=== PATIENT | female | born 1950 | race Caucasian/White ===

== ENCOUNTER 2016-12-25 12:48 | Day surgery (SDC) | payer MEDICARE ==
[~2016-12-25] VITALS: Ht 162.6 cm; Wt 61.3 kg
[~2016-12-25 12:48] MED LIST: ALLE4TAB7; CEFT1INJ IM; CRAN1CAP6; FISH1200; INFL1INJ56 IM; LACTCAP7 PO; MELO15TA2 PO; METO25CR PO; PRAV10 PO; PRAV10TA PO; RANI150T PO; TAB-TAB PO; TIZA4 PO; VALT500T PO
[2016-12-25] MEDS ORDERED: RANI150T PO (13:19)
[2016-12-25] MEDS ORDERED: LACTCAP8 PO (13:19)
[2016-12-25] MEDS ORDERED: FISHCAP4 PO (13:19)
[2016-12-25] MEDS ORDERED: TIZA4CAP3 PO (13:19)
[2016-12-25] MEDS ORDERED: MELO-1 PO (13:19)
[2016-12-25] MEDS ORDERED: ATEN25TA PO (13:19)
[2016-12-25] MEDS ORDERED: MULT1TAB84 PO (13:19)
[2016-12-25 13:27] VITALS: BP 155/85; PULSE 85; RESP 16; TEMP 98.3; O2SAT 99
[2016-12-25] MEDS ORDERED: LACTATED RINGER'S 1000 ML IV SCH (13:30)
[2016-12-25] MEDS ORDERED: SODIUM CHLORID 0.9% 500 ML INJ 500 ML IV SCH (13:30)
[2016-12-25] MEDS ORDERED: METOPROLOL TARTRATE 25 MG TAB PO PRN (13:30)
[2016-12-25] MEDS: SODIUM CHLORID 0.9% 500 ML IV SCH (13:30)
[2016-12-25] MEDS ORDERED: INSULIN HUMAN REGULAR 1,000 UNITS/10 ML VIAL SQ PRN (13:30)
[2016-12-25 13:38] LABS: AUTOMATED NEUTROPHIL # 3.8 TH/MM3 (1.8-7.7); BASOPHIL % 0.6 % (0.0-2.0); EOSINOPHIL # 0.1 TH/MM3 (0-0.4); EOSINOPHIL % 0.8 % (0.0-4.0); HEMATOCRIT 39.7 % (35.0-46.0); HEMO FLAGS DIFF FINAL; LYMPH % 36.8 % (9.0-44.0); LYMPHOCYTE # 2.6 TH/MM3 (1.0-4.8); MEAN CELL VOLUME 93.8 FL (80.0-100.0); MEAN CORPUSCULAR HEMOGLOBIN 32.3 PG (27.0-34.0); MEAN CORPUSCULAR HGB CONC 34.4 % (32.0-36.0); MONO % 7.6 % (0.0-8.0); NEUT % 54.2 % (16.0-70.0); PLATELET COUNT 238 TH/MM3 (150-450); RED BLOOD COUNT 4.23 MIL/MM3 (4.00-5.30); RED CELL DISTRIBUTION WIDTH 12.9 % (11.6-17.2)
[2016-12-25 13:51] LABS: APTT (PATIENT) 30.2 SEC (24.3-30.1); INTERNATIONAL NORMALIZED RATIO 0.9 RATIO; PROTHROMBIN TIME - PATIENT 10.4 SEC (9.8-11.6)
[2016-12-25 14:05] LABS: BICARBONATE 30.7 MEQ/L (21.0-32.0)
[2016-12-25] MEDS ORDERED: POTASSIUM CHLOR 20 MEQ PREMIX 100 ML ONE (15:07)
[2016-12-25] MEDS ORDERED: PROPOFOL 200 MG/20 ML AMP OTHER ONE (15:47)
[2016-12-25] MEDS: POTASSIUM CHLOR 20 MEQ PREMIX 100 ML IV SCH ×2 (16:00→18:00)
[2016-12-25] MEDS ORDERED: MIDAZOLAM HCL 5 MG/5 ML VIAL ONE (16:04)
[2016-12-25] MEDS ORDERED: SODIUM CHLOR 0.9% 250 ML INJ 250 ML ONE ×2 (17:09→17:25)
[2016-12-25] MEDS ORDERED: VANCOMYCIN HCL 1000 MG VIAL ONE (17:09)
[2016-12-25] MEDS ORDERED: ISOPROTERENOL HCL 1 MG/5 ML AMP ONE (17:23)
[2016-12-25] MEDS ORDERED: MIDAZOLAM HCL 2 MG/2 ML VIAL ONE (18:02)
[2016-12-25] MEDS ORDERED: BACITRACIN OINT 0.9 GM PKT TOP ONE (18:15)
[2016-12-25] MEDS ORDERED: oxyCODONE/ACETAMINOPHEN 5 MG/325 MG TAB PO PRN ×2 (18:15)
[2016-12-25] MEDS ORDERED: LIDOCAINE HCL 1% 50 ML VIAL INFIL PRN (18:15)
[2016-12-25] MEDS ORDERED: LORazepam 2 MG/ML VIAL IV PRN (18:15)
[2016-12-25] MEDS ORDERED: POTASSIUM CHLORIDE 10 MEQ CONTROLLED RELEASE TAB PO ONE (18:30)
[2016-12-25 19:01] VITALS: PULSE 80
[2016-12-25 19:31] VITALS: BP 184/91; PULSE 82; RESP 18; TEMP 97.6; O2SAT 100
[2016-12-25 21:16] LABS: BICARBONATE 26.2 MEQ/L (21.0-32.0)
[2016-12-25 22:01] VITALS: PULSE 75
[2016-12-25 23:01] VITALS: BP 137/73; PULSE 75; PULSE 82; RESP 18; TEMP 97.7; O2SAT 100; O2SAT 99
[2016-12-26] VITALS (14 sets, daily range): BP systolic 125–152; BP diastolic 80–82; PULSE 66–110; RESP 16–18; TEMP 98.3–98.5; O2SAT 97–98
[2016-12-26] MEDS ORDERED: ASPI81CH37 PO (06:00)
[2016-12-26] MEDS: SODIUM CHLORID 0.9% 500 ML IV SCH (06:10)
[2016-12-26 07:15] LABS: BICARBONATE 28.9 MEQ/L (21.0-32.0); POTASSIUM 3.9 MEQ/L (3.5-5.1)
--- NOTE | 2016-12-26 07:19 | MA ---
cc: MARY CHAPARRO M.D. JAMESON DUMONT DATE 12/25/2016 DATE OF 1950. REQUESTING PHYSICIAN Mary Chaparro MD CLINICAL INDICATION The patient is a 66-year-old lady with symptomatic SVT despite usage of metoprolol, so far has tried propranolol without tolerance. Again the patient is very symptomatic with SVT, thus the patient came in for EP study and SVT ablation. PROCEDURE IN DETAIL The patient was sedated by the anesthesiologist using MAC. The patient was prepped and draped in sterile fashion. The right femoral vein was accessed and six 8-Indonesian sheaths were placed. We also accessed the right IJ and using ultrasound guidance, a and Duodeca catheter was placed in the CS through an 8-Indonesian sheath. Quadripolar catheter was placed in the His and RV position. We did an EP study first. The patient was sinus with cycle lengths around 5/980 milliseconds, ND-intervals 102 milliseconds, HV 34 milliseconds, AH is 69 milliseconds, QT is 364 milliseconds, QRS is 122 milliseconds. AVH for ERP was 600/30. The patient was noted to have possible jump in AH - 600/240 with one echo beat. So far VA conduction via Wenckebach is 320 milliseconds, concentric with decremental prompting. AV Wenckebach 320 milliseconds also. So far the patient was noted to have one echo beat by A1, A2 but no inducible tachycardia by CS burst pacing. The patient was started on isoproterenol and the heart rate increased to around 500 beats/minute and during Isuprel infusion we did induce SVT by CS burst pacing. So far the patient was noted to have cycle lengths around 240 to 200 milliseconds, VA 0msec with AVNRT. So far PVC on His does not move up to A. Then we decided to modify the AV ricky pathway. We did use GIOVANI for 3-D mapping and non-thermacoblation D-curve catheter was used. We did a modified the slow path with multiple junctional beats. Afterward the patient was noted to have one possible echo beat but so far there is no inducible tachycardia during Isuprel infusion up to 3 mcg again. Again, there is no inducible tachycardia with drug infusion. Then we concluded the study. During ablation, the patient was noted to have multiple junctional beats. Post-ablation the patient was noted to have AV Wenckebach around 360 milliseconds, HV the same. We did remove the sheaths with hemostasis applied by manual pressure. The patient tolerated the procedure without any complication. CONCLUSIONS 1. EP study with recording of LA activity along with pacing through the CS. 2. Isuprel drug test and program stimulation. 3. 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 4. Modification of AV node slow pathway using GIOVANI and 3-D mapping. ESTIMATED BLOOD LOSS About 10 cc. CONTRAST None. PLAN 1. The patient will be kept overnight and potassium supplement will be added given the borderline potassium of 3.0. 2. The patient will be discharged home tomorrow if potassium is about 3.5 and there is no groin problem. Thank you Dr. Chaparro. MD FAVIO Jimenez/JARVIS /6:29 PM /7:20 AM HEIDI
[2016-12-26] MEDS ORDERED: PERC5TAB12 PO (07:56)
[2016-12-26] MEDS ORDERED: LACTOBACILLUS ACIDOPHILUS TAB PO SCH (08:00)
[2016-12-26] MEDS ORDERED: ASPIRIN EC 81 MG TABEC PO SCH (09:00)
[2016-12-26] MEDS ORDERED: PRAVASTATIN SOD 10 MG TAB PO SCH (09:00)
[2016-12-26] MEDS ORDERED: valACYclovir HCL 500 MG TAB PO SCH (09:00)
[2016-12-26] MEDS ORDERED: MELOXICAM 15 MG TAB PO SCH (09:00)
[2016-12-26] MEDS ORDERED: FAMOTIDINE 20 MG TAB PO SCH (09:00)
[2016-12-26] MEDS ORDERED: ATENOLOL 25 MG TAB PO SCH (09:00)
[2016-12-26] MEDS ORDERED: MULTIVITAMINS/MINERALS THERAPEUTIC TAB PO SCH (09:00)
--- NOTE | 2016-12-26 09:38 | EKG ---
Date Performed: 12/26/2016 Time Performed: 05:49:00 PTAGE: 66 years EKG: Sinus rhythm with bigeminal PACs Right bundle branch block Abnormal ECG PREVIOUS TRACING : 12/25/2016 13.42 No significant change from previous tracing noted. DOCTOR: Pal Waller Interpretating Date/Time 12/26/2016 09:37:09
--- NOTE | 2016-12-26 15:43 | EKG ---
Date Performed: 12/25/2016 Time Performed: 13:42:12 PTAGE: 66 years EKG: Sinus rhythm with bigeminal PACs Right bundle branch block Abnormal ECG PREVIOUS TRACING : 09/21/2009 19.14 Compared to previous tracing, right bundle branch block pat tern is now present. DOCTOR: Pal Waller Interpretating Date/Time 12/26/2016 15:41:58
[2017-01-26] MEDS ORDERED: ALBUAER3 INH (14:26)
[2017-04-09] MEDS ORDERED: VALT500T PO (15:16)
== END 2016-12-26 09:32 | disposition home or self-care (01) ==
LOC: HDIC 12:48 → HDOC 12:48 → HCIN 18:43 → HDOC 12-26 09:32
PROVIDERS: ATTEND Internal Medicine Cardiovascular Disease
DX: I47.1 Supraventricular tachycardia (principal); I45.10 Unspecified right bundle-branch block; R94.31 Abnormal electrocardiogram [ECG] [EKG]; Z79.899 Other long term (current) drug therapy; Z79.82 Long term (current) use of aspirin
CPT/HCPCS: 80048; 85025; 85610; 85730; 93005; 93613; 93623; 93653; C1730; C1732; C2630; J2250; J3010; J3370; J3480; J7050

== ENCOUNTER 2017-01-19 10:24 | Day surgery (SDC) | payer MEDICARE ==
[~2017-01-19] VITALS: Ht 162.6 cm; Wt 61.5 kg
[~2017-01-19 10:24] MED LIST changes: -ALLE4TAB7; +ASPI81CH37 PO; +ATEN25TA PO; -CRAN1CAP6; -FISH1200; +FISHCAP4 PO; -LACTCAP7 PO; +LACTCAP8 PO; +MELO-1 PO; -MELO15TA2 PO; -METO25CR PO; +MULT1TAB84 PO; +PERC5TAB12 PO; -PRAV10 PO; -TAB-TAB PO; -TIZA4 PO; +TIZA4CAP3 PO
[2017-01-19] MEDS ORDERED: NS 1000P @30 MLS/HR (KVO) IV SCH (11:00)
[2017-01-19 11:01] VITALS: BP 129/77; PULSE 56; RESP 18; TEMP 98.6; O2SAT 97
[2017-01-19 11:18] LABS: BASOPHIL # 0.1 TH/MM3 (0-0.2); BASOPHIL % 0.9 % (0.0-2.0); EOSINOPHIL % 0.4 % (0.0-4.0); HEMATOCRIT 36.2 % (35.0-46.0); HEMO FLAGS DIFF FINAL; LYMPH % 34.1 % (9.0-44.0); LYMPHOCYTE # 1.9 TH/MM3 (1.0-4.8); MEAN CELL VOLUME 93.5 FL (80.0-100.0); MEAN CORPUSCULAR HEMOGLOBIN 32.6 PG (27.0-34.0); MEAN CORPUSCULAR HGB CONC 34.8 % (32.0-36.0); MONO % 10.2 % (0.0-8.0); NEUT % 54.4 % (16.0-70.0); PLATELET COUNT 222 TH/MM3 (150-450); RED BLOOD COUNT 3.87 MIL/MM3 (4.00-5.30); RED CELL DISTRIBUTION WIDTH 12.9 % (11.6-17.2); WHITE BLOOD COUNT 5.6 TH/MM3 (4.0-11.0)
[2017-01-19 11:30] LABS: APTT (PATIENT) 30.1 SEC (24.3-30.1); INTERNATIONAL NORMALIZED RATIO 0.9 RATIO; PROTHROMBIN TIME - PATIENT 10.4 SEC (9.8-11.6)
[2017-01-19 11:37] LABS: BICARBONATE 27.3 MEQ/L (21.0-32.0); POTASSIUM 4.2 MEQ/L (3.5-5.1)
[2017-01-19] MEDS ORDERED: HEPARIN-NS/PF INJ 500 ML ONE (12:30)
[2017-01-19] MEDS ORDERED: MIDAZOLAM HCL 2 MG/2 ML VIAL ONE (12:31)
[2017-01-19] MEDS ORDERED: IOHEXOL 350 MG/ML 100 ML BTL (for Cath Lab) OTHER ONE (13:45)
--- NOTE | 2017-01-21 21:39 | EKG ---
Date Performed: 01/19/2017 Time Performed: 11:14:42 PTAGE: 66 years EKG: Sinus bradycardia. Lead(s) unsuitable for analysis: V3 V4 Right bundle branch block Abnorma l ECG PREVIOUS TRACING : 12/26/2016 05.49 DOCTOR: Sarah Lake Interpretating Date/Time 01/21/2017 21:34:26
--- NOTE | 2017-01-23 17:52 | MA ---
cc: FERMIN MAST MD, HUMAYUN A. M.D. DATE: 01/19/2017 INDICATION FOR CATHETERIZATION: Unstable angina. Classic history of chest pain on exertion, following SCT ablation. CONSENT: A full informed consent was obtained prior to the procedure. The risks of , bleeding, myocardial infarction, perforation, aspiration, foreseen and unforeseen complications were reviewed. The patient fully appeared to understand the risks. PROCEDURAL STATEMENTS: The patient was draped and prepped in the usual manner. The right femoral artery was entered using a micropuncture technique. Via a 4 Guamanian sheath, left and right coronary catheters were used to intubate the left and right coronaries. Pigtail catheter was used to intubate the left ventricle. Multiple angiographic views were carried out. At the end of the procedure, all catheters and sheaths were removed. Manual pressure was applied to the wound. The patient returned to her room in stable condition. Note: The patient was given sedation with Versed and fentanyl throughout the procedure. FINDINGS HEMODYNAMICS: Aortic pressure was 123/49 with a mean of 81. The left ventricular pressure was 126 and the left ventricular end-diastolic pressure of 20. There was no evidence of significant gradient on pullback across the LV outflow tract and aortic valve. LEFT VENTRICULOGRAM: The overall left ventricular ejection fraction was 60%. There was no evidence of significant mitral regurgitation or mural thrombus. CORONARY ARTERIES: The left main coronary artery is free of significant disease. The left anterior descending artery is a large artery. The first diagonal branch is large and free of significant disease. The circumflex artery is a large artery with a large first obtuse marginal branch. The right coronary artery is a large artery with a medium posterior descending artery and medium posterolateral branch. CONCLUSIONS: Normal coronaries. No evidence of significant stenosis. Mary Chaparro MD, FRCP,[facility] JOSE/MARY /1:51 PM /5:27 PM
[2017-01-26] MEDS ORDERED: ALBUAER3 INH (14:26)
[2017-04-09] MEDS ORDERED: VALT500T PO (15:16)
== END 2017-01-19 18:16 | disposition home or self-care (01) ==
LOC: HCAT 10:24 → HDIC 10:25 → HCAT 18:16
PROVIDERS: ATTEND Internal Medicine Cardiovascular Disease
DX: I20.0 Unstable angina (principal); I47.1 Supraventricular tachycardia; I10 Essential (primary) hypertension; E78.5 Hyperlipidemia, unspecified; F41.9 Anxiety disorder, unspecified; Z87.891 Personal history of nicotine dependence
CPT/HCPCS: 80048; 85025; 85610; 85730; 93005; 93458; C1769; C1893; J1644; J2250; J3010; Q9967

== ENCOUNTER → 2017-02-28 | Outpatient (CLI) | payer MEDICARE ==
[~2017-02-28] MED LIST changes: +ALBUAER3 INH; -PERC5TAB12 PO
--- NOTE | 2017-03-07 10:31 | RSPPFT ---
DATE OF PROCEDURE: 02/28/17 COMMENTS: Spirometry shows FVC of 2.2 at 76% of predicted, FEV1 of 1.7 at 80%, FEV1/FVC ratio is normal. Flow is normal at FEF 25% and mildly decreased at FEF 50, FEF 75 and FEF 25-75. There is no response after bronchodilator treatment. Lung volumes show residual volume is increased. TLC is normal. Diffusion capacity is normal. Flow volume loop indicates terminal airways obstruction. IMPRESSION: 1. Mild small airways obstructive lung disease. 2. No response after bronchodilator treatment. 3. Lung volumes are normal. 4. Normal diffusion capacity.
== END ==
LOC: PHRSP 07:25
PROVIDERS: ATTEND Family Medicine
DX: R06.02 Shortness of breath (principal); R06.09 Other forms of dyspnea
CPT/HCPCS: 94060; 94726; 94729